=== PATIENT | male | born 1975 ===

== ENCOUNTER 2018-12-05 08:43 | Emergency (ER) | payer SELFPAY ==
--- NOTE | 2018-12-05 09:23 | C.PDOC ---
History Of Present Illness 43 year old male presents to the ED ED s/p fall with c/o left wrist/hand pain. Patient reports +fall onto outstretched hand and mild swelling. Denies other injuries at this time. 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 +FOOSH +MILD SWELL. NO OTHER INJ EXAM NAD EXT LUE +MILD SWELL/BRUISING TOP L HAND/WRIST. AROM WO DIFF. NO GROSS DEFORM NEURO INTACT SKIN INTACT MDM L WRIST SPLINT APPLIED Time Seen by Provider: 12/05/18 09:22 Chief Complaint (Nursing): Upper Extremity Problem/Injury History Per: Patient History/Exam Limitations: no limitations Onset/Duration Of Symptoms: Hrs Current Symptoms Are (Timing): Still Present Quality: "Pain" Additional History Per: Patient Past Medical History Reviewed: Historical Data, Nursing Documentation, Vital Signs - Medical History PMH: No Chronic Diseases Surgical History: No Surg Hx Family History: States: Unknown Family Hx Review Of Systems Musculoskeletal: Positive for: Other (left hand/left wrsit pain s/p fall onto outstretched hand ) Neurological: Negative for: Weakness, Numbness, Other (head injury, LOC ) Physical Exam - Physical Exam Appears: Non-toxic, No Acute Distress Skin: Normal Color, Warm, Dry, Other (skin intact ) Extremity: Normal ROM (able to ROM without difficulty), No Deformity (gross), Other (left upper extremity with mild swelling/bruising to top of left hand/wrist) Neurological/Psych: Normal Speech, Normal Cognition, Normal Sensation, Other (neuro intact ) ED Course And Treatment O2 Sat by Pulse Oximetry: 99 (on RA) Pulse Ox Interpretation: Normal - Other Rad L WRIST X-Ray: Interpreted by Me L HAND X-Ray: Interpreted by Me (NEG) Progress Note: Left hand and left wrist XR ordered and reviewed. Motrin PO given. Medical Decision Making Medical Decision Making: Progress: Left wrist splint was applied. Disposition Counseled Patient/Family Regarding: Studies Performed, Diagnosis, Need For Followup, Rx Given - Disposition Referrals: YOUR,PMD [Other] Disposition: HOME/ ROUTINE Disposition Time: 09:51 Condition: IMPROVED Prescriptions: Ibuprofen [Motrin] 600 mg PO Q6 #30 tab Instructions: Wrist Sprain (DC) Forms: [email or web address] (Gambian), Work Excuse Print Language: EAST [place] - Clinical Impression Clinical Impression: Wrist sprain - Scribe Statement The provider has reviewed the documentation as recorded by the Scribe (Torrie Bonilla) Provider Attestation: All medical record entries made by the Scribe were at my direction and personally dictated by me. I have reviewed the chart and agree that the record accurately reflects my personal performance of the history, physical exam, medical decision making, and the department course for this patient. I have also personally directed, reviewed, and agree with the discharge instructions and disposition.
[2018-12-05 09:57] VITALS: BP 136/72; PULSE 72; RESP 16; TEMP 98.3; O2SAT 99
--- NOTE | 2018-12-05 13:03 | RAD ---
Date of service: 12/05/2018 PROCEDURE: Left Wrist Radiographs. HISTORY: FALL COMPARISON: None. FINDINGS: BONES: A flake avulsed fracture fragment projects over the dorsum of the mid carpus triquetrum fracture is inferred. JOINTS: Normal. No dislocation. SOFT TISSUES: Soft tissue swelling dorsum OTHER FINDINGS: None. IMPRESSION: Triquetrum dorsal avulsed acute appearing flake fracture fragment with the associated soft tissue swelling Comments: Study marked for PA review .
--- NOTE | 2018-12-05 13:06 | RAD ---
PROCEDURE: Left Hand Radiographs. HISTORY: FALL COMPARISON: None. FINDINGS: BONES: A flake avulsed fracture fragment projects over the dorsum of the mid carpus triquetrum fracture is inferred.. JOINTS: no significant appearing osteoarthritic changes. SOFT TISSUES: Dorsal mid carpal level soft tissue swelling OTHER FINDINGS: None. IMPRESSION: Dorsal triquetrum flake osseous avulsed fracture fragment with dorsal soft tissue swelling. Comments: Study marked for PA review .
== END 2018-12-05 10:05 | disposition home or self-care (01) ==
LOC: C.ER 08:43
DX: S63.502A Unspecified sprain of left wrist, initial encounter (principal); W19.XXXA Unspecified fall, initial encounter